=== PATIENT | male | born 1975 | race Caucasian/White ===

== ENCOUNTER 2024-02-20 05:30 | Inpatient (IN) | payer OTHER ==
[~2024-02-20] VITALS: Ht 175.3 cm; Wt 94.3 kg
[2024-02-20] MEDS ORDERED: CELECOXIB 100 MG CAPSULE ONE (05:47)
[2024-02-20] MEDS ORDERED: ACETAMINOPHEN 500 MG TABLET ONE (05:48)
[2024-02-20] MEDS ORDERED: SCOPOLAMINE HYDROBROMIDE 1 MG PATCH .72 H (TRANSDERM-SCOP) TD ONE (05:50)
[2024-02-20] MEDS ORDERED: oxyCODONE HCL 10 MG TAB.ER.12H PO ONE (05:50)
[2024-02-20] MEDS ORDERED: GABAPENTIN 300 MG CAPSULE ONE (05:51)
[2024-02-20] MEDS: GABAPENTIN 300 MG CAPSULE PO ONE (06:10)
[2024-02-20] MEDS: SCOPOLAMINE HYDROBROMIDE 1 MG PATCH .72 H (TRANSDERM-SCOP) TD ONE (06:10)
[2024-02-20] MEDS: CELECOXIB 100 MG CAPSULE PO ONE (06:10)
[2024-02-20] MEDS: ACETAMINOPHEN 500 MG TABLET PO ONE (06:10)
[2024-02-20] MEDS: oxyCODONE HCL 10 MG TAB.ER.12H PO ONE (06:50)
[2024-02-20] MEDS ORDERED: NS 1000 ML IV.SOLN IV ONE (07:00)
[2024-02-20] MEDS ORDERED: MIDAZOLAM HCL 2 MG/2 ML VIAL (VERSED) ONE (07:00)
[2024-02-20] MEDS ORDERED: PROPOFOL 200MG/ 20ML VIAL (DIPRIVAN) IV ONE (07:00)
[2024-02-20] MEDS ORDERED: DESFLURANE 15 MIN GAS INH ONE (07:00)
[2024-02-20] MEDS ORDERED: DEXAMETHASONE SOD PHOSPHATE 4 MG/ML VIAL ONE (07:00)
[2024-02-20] MEDS ORDERED: ROCURONIUM BROMIDE 10 MG/ML (ZEMURON) ONE (07:00)
[2024-02-20] MEDS ORDERED: fentaNYL CITRATE/PF 100 MCG/2 ML AMP ONE (07:00)
[2024-02-20] MEDS ORDERED: VANCOMYCIN HCL 1000 MG/VIAL IV ONE (07:00)
[2024-02-20] MEDS ORDERED: BUPIVACAINE /PF 0.25% 10 ML VIAL INJ ONE (07:00)
[2024-02-20] MEDS ORDERED: ONDANSETRON HCL 4 MG/2 ML VIAL ONE (07:00)
[2024-02-20] MEDS ORDERED: ceFAZolin SODIUM 1 GM VIAL ONE (07:00)
[2024-02-20] MEDS ORDERED: LR 1,000 ML IV SCH (08:00)
[2024-02-20] MEDS ORDERED: MEPERIDINE HCL/PF 25 MG/ML DISP.SYRIN IVP PRN (08:00)
[2024-02-20] MEDS ORDERED: METOCLOPRAMIDE HCL 10 MG/2 ML VIAL IVP PRN ×2 (08:00→10:00)
[2024-02-20] MEDS ORDERED: LABETALOL 100 MG/ 20ML VIAL IVP PRN (08:00)
[2024-02-20] MEDS ORDERED: HYDROmorphone 1 MG/ML INJ. CARTRIDGE IVP PRN ×4 (08:00→11:00)
[2024-02-20] MEDS ORDERED: hydrALAZINE HCL 20 MG/ML VIAL IVP PRN (08:00)
[2024-02-20] MEDS ORDERED: NALOXONE HCL 0.4 MG/ML AMP (NARCAN) IVP PRN ×3 (10:00)
[2024-02-20] MEDS ORDERED: LACTULOSE 20 GM/30 ML UDC PO PRN (10:00)
[2024-02-20] MEDS ORDERED: DIPHENHYDRAMINE HCL 25 MG CAPSULE PO PRN (10:00)
[2024-02-20] MEDS ORDERED: BISACODYL 10 MG/SUPPOSITORY RC PRN (10:00)
[2024-02-20] MEDS ORDERED: HYDROmorphone 1 MG/ML INJ. CARTRIDGE ONE (10:32)
[2024-02-20] MEDS: HYDROmorphone 1 MG/ML INJ. CARTRIDGE IVP PRN (10:34)
[2024-02-20] MEDS ORDERED: TAMSULOSIN HCL 0.4 MG CAP ONE (10:42)
[2024-02-20] MEDS ORDERED: LORATADINE 10 MG TABLET PO PRN (11:00)
[2024-02-20] MEDS ORDERED: oxyCODONE HCL 5 MG TABLET PO PRN ×2 (11:00)
[2024-02-20] MEDS ORDERED: traMADol HCL HCL 50 MG TABLET (ULTRAM) PO PRN (11:00)
[2024-02-20] MEDS ORDERED: ceFAZolin SODIUM 2 GM in D5W 50 ML IV SCH (11:15)
[2024-02-20 11:26] VITALS: BP_SYST 124
[2024-02-20] MEDS ORDERED: ONDANSETRON HCL 4 MG/2 ML VIAL IVP PRN (11:45)
[2024-02-20] MEDS ORDERED: ACETAMINOPHEN 500 MG TABLET PO SCH (14:00)
[2024-02-20] MEDS ORDERED: KETOROLAC TROMETHAMINE 10 MG TABLET (TORADOL) PO SCH (14:00)
[2024-02-20] MEDS ORDERED: CEFAZOLIN SOD 2 GM in D5W 50 ML IV SCH (14:00)
[2024-02-20] MEDS ORDERED: SENNOSIDES/DOCUSATE SODIUM 1 TAB TABLET(SENOKOT-S) PO SCH (21:00)
[2024-02-21] MEDS ORDERED: TAMSULOSIN HCL 0.4 MG CAP PO SCH (09:00)
[2024-02-21] MEDS ORDERED: ASPIRIN 81 MG TAB.CHEW PO SCH (09:00)
[2024-02-21] MEDS: TAMSULOSIN HCL 0.4 MG CAP PO ONE (10:39)
[2024-02-21] MEDS ORDERED: CELECOXIB 200 MG CAPSULE PO SCH (11:00)
== END 2024-02-20 12:45 | disposition home health service (06) | DRG 470 ==
LOC: SMU 05:30
PROVIDERS: ADMIT Student in an Organized Health Care Education/Training Program; ATTEND Student in an Organized Health Care Education/Training Program
PROC: 3E0T3BZ Introduction of Anesthetic Agent into Peripheral Nerves and Plexi, Percutaneous Approach (ICD-10-PCS; 2024-02-20)
PROC: 0SR90JZ Replacement of Right Hip Joint with Synthetic Substitute, Open Approach (ICD-10-PCS; principal; 2024-02-20 07:00)
DX: M16.11 Unilateral primary osteoarthritis, right hip (principal); Z79.899 Other long term (current) drug therapy
CPT/HCPCS: 72170-TC; 76000; 87081; 88304; 88311; 97110-GP; 97116-GP; 97530-GP; A4649; C1713; C1776; J0690; J0696; J1100; J1171; J2250; J2405; J2704; J3010; J3370; J3490; J7030; J7060; J7120